=== PATIENT | male | born 1955 | race Caucasian/White ===

== ENCOUNTER 2019-02-03 14:02 | Observation (INO) | payer BC ==
--- NOTE | 2019-02-03 14:33 | ED Physician Documentation ---
PD HPI SYNCOPE - Stated complaint Stated Complaint: SYNCOPE - Chief complaint Chief Complaint: Neuro - History obtained from History obtained from: Patient, Family (his mom) - History of Present Illness Witnessed: Witnessed (There were in line at a fast food drive-through, he was driving. He passed out for about 30 seconds with head bobbing and then came to without any postictal., He was dizzy before this and dizzy this morning. Now feels fine. There has not been any chest pain, trouble breathing, pedal edema or calf pain.) Review of Systems Ten Systems: 10 systems reviewed and negative Constitutional: denies: Fever, Chills Cardiac: denies: Chest pain / pressure, Palpitations Respiratory: denies: Dyspnea, Cough GI: denies: Nausea, Vomiting, Diarrhea PD PAST MEDICAL HISTORY - Past Medical History Past Medical History: No - Allergies Allergies/Adverse Reactions: Allergies Allergy/AdvReac Type Severity Reaction Status Date / Time No Known Drug Allergies Allergy Verified 02/03/19 14:30 - Social History Smoking Status: Current every day smoker Does the pt drink ETOH?: Yes Does the pt have substance abuse?: Yes Substance Use and Type: Marijuana - Family History Family history: reports: Non contributory PD ED PE NORMAL - Vitals Vital signs reviewed: Yes - General General: Alert and oriented X 3, No acute distress - HEENT HEENT: PERRL, EOMI - Neck Neck: Supple, no meningeal sign, No bony TTP - Cardiac Cardiac: RRR, No murmur - Respiratory Respiratory: No respiratory distress, Clear bilaterally - Abdomen Abdomen: Soft, Non tender - Back Back: No CVA TTP, No spinal TTP - Derm Derm: Normal color, Warm and dry - Extremities Extremities: No edema, No calf tenderness / cord - Neuro Neuro: Alert and oriented X 3, Normal speech Results - Vitals Vitals: Vital Signs - 24 hr 02/03/19 02/03/19 14:10 15:21 Temperature 36.2 C L Heart Rate 59 L 54 L Respiratory 16 14 Rate Blood Pressure 142/76 H 114/58 L O2 Saturation 95 94 Oxygen O2 Source Room air - EKG (time done) 1415 Rate: Rate (enter#) (49) Rhythm: Sinus bradycardia [place]: LAD Intervals: Normal IN QRS: Normal Ischemia: Normal ST segments Computer interpretation: Agree with computer - Labs Labs: Laboratory Tests 02/03/19 02/03/19 02/03/19 14:48 14:48 14:48 WBC 7.9 RBC 4.98 Hgb 15.3 Hct 44.9 MCV 90.0 MCH 30.7 MCHC 34.1 RDW 13.6 Plt Count 193 MPV 8.7 Neut # (Auto) 5.7 Lymph # (Auto) 1.4 L [place] # (Auto) 0.6 Eos # (Auto) 0.1 Baso # (Auto) 0.1 Absolute Nucleated RBC 0.00 Nucleated RBC % 0.0 Sodium 133 L Potassium 4.0 Chloride 102 Carbon Dioxide 23 Anion Gap 8.0 BUN 15 Creatinine 0.7 Estimated GFR (MDRD) 114 Glucose 151 H Calcium 8.5 Magnesium 1.9 Total Bilirubin 0.6 AST 24 ALT 23 Alkaline Phosphatase 51 Troponin I < 0.04 Total Protein 7.1 Albumin 3.7 Globulin 3.4 Albumin/Globulin Ratio 1.1 Lipase 49 TSH 02/03/19 14:48 WBC RBC Hgb Hct MCV MCH MCHC RDW Plt Count MPV Neut # (Auto) Lymph # (Auto) [place] # (Auto) Eos # (Auto) Baso # (Auto) Absolute Nucleated RBC Nucleated RBC % Sodium Potassium Chloride Carbon Dioxide Anion Gap BUN Creatinine Estimated GFR (MDRD) Glucose Calcium Magnesium Total Bilirubin AST ALT Alkaline Phosphatase Troponin I Total Protein Albumin Globulin Albumin/Globulin Ratio Lipase TSH 1.52 PD MEDICAL DECISION MAKING - ED course ED course: 63-year-old gentleman presents with a syncopal episode, now back to normal. His emergency department work-up was notable for several episodes of bradycardia on the monitor, sinus bradycardia down to a heart rate of 40 but no lower. He was asymptomatic during this. This is concerning and potentially a harbinger that he had a more significant bradycardic episode causing his syncope and I spoke with Dr. Aponte for prolonged observation at 3:55 PM. Departure - Departure Disposition: ED Place in Observation Clinical Impression: Bradycardia Syncope Qualifiers: Syncope type: unspecified Qualified Code(s): R55 - Syncope and collapse Condition: Stable
[2019-02-03 14:52] LABS: BASOPHILS # (AUTO) 0.1 10^3/uL (0.0-0.1); EOSINOPHILS # (AUTO) 0.1 10^3/uL (0.0-0.7); EOSINOPHILS % (AUTO) 1.3 %; HGB - HEMOGLOBIN 15.3 g/dL (14.0-18.0); LYMPHOCYTES # (AUTO) 1.4 10^3/uL (1.5-3.5); LYMPHOCYTES % (AUTO) 17.6 %; MEAN CORPUSCULAR HEMOGLOBIN 30.7 pg (27.0-31.0); MEAN CORPUSCULAR HGB CONC 34.1 g/dL (32.0-36.0); MEAN PLATELET VOLUME 8.7 fL (7.4-11.4); MONOCYTES # (AUTO) 0.6 10^3/uL (0.0-1.0); MONOCYTES % (AUTO) 7.4 %; NEUTROPHILS # (AUTO) 5.7 10^3/uL (1.5-6.6); NEUTROPHILS % (AUTO) 72.7 %; PLT - PLATELET COUNT 193 10^3/uL (130-450); RED BLOOD COUNT 4.98 10^6/uL (4.70-6.10); RED CELL DISTRIBUTION WIDTH 13.6 % (12.0-15.0); WHITE BLOOD COUNT 7.9 x10^3/uL (4.8-10.8)
[2019-02-03 15:09] LABS: ALBUMIN 3.7 g/dL (3.2-5.5); ALBUMIN/GLOBULIN RATIO 1.1 (1.0-2.2); BILIRUBIN,TOTAL 0.6 mg/dL (0.2-1.0); CALCIUM 8.5 mg/dL (8.5-10.3); CREATININE 0.7 mg/dL (0.6-1.2); MAGNESIUM 1.9 mg/dL (1.7-2.8); TOTAL PROTEIN 7.1 g/dL (6.7-8.2)
[2019-02-03] MEDS ORDERED: ACETAMINOPHEN 325 MG TABLET PO PRN (16:30)
[2019-02-03] MEDS ORDERED: SODIUM CHLORIDE FLUSH 0.9% 10 ML SYRINGE IVP PRN (16:30)
[2019-02-03] MEDS ORDERED: NICOTINE 21 MG PATCH TOP SCH (19:00)
--- NOTE | 2019-02-03 20:57 | HISTORY & PHYSICAL EXAMINATION ---
DATE OF SERVICE: 02/03/2019 Physician: Ary Aponte MD HISTORY OF PRESENT ILLNESS: This is a 63-year-old white male who has a negative past medical history except rare fractures and remote peptic ulcer disease. He is on no medications and has no PCP. The patient describes that he usually eats only when he is so lightheaded that he realizes he has to eat; the reason for this is he thinks he is not interested in food or gets early satiety. These symptoms have been happening for several years. He describes about 6 months of sensations of body muscle cramps that last for days, and then eventually he has a soreness in that region. 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 Just this 1 week ago, he started walking as a routine activity. This morning, he awoke and was slightly more dizzy than usual, thought it was his sensation of being hungry, but waited further until he finally had a meal after picking up his mother. He did not feel any better after that meal, and then they went shopping. While he was walking in the store, he got lightheadedness to the point where he had to hold on to something and stop and wait, then felt better immediately. There was no tunnel vision or syncope at this point, no palpitations, chest pain or shortness of breath. He was then able to continue his errands and was driving in a [employer] drive-through and while stopped in the queue, he had witnessed syncope while sitting at the wheel of his car. His mother lightly shook him and said, "Are you okay?" and he was able to wake up immediately and felt better and was able to communicate. He did remember feeling dizzy just before this entire event, but cannot even remember that his head hit the steering wheel gently. After awakening, he ate his ice cream cone that was ordered and at that point felt immediately better. They were able to continue shopping, and then he decided he had to have evaluation for this and came to the emergency room. There has been no sensation of lightheadedness since that eating of the ice cream. He has never had syncope before. In the emergency room, he was found to have a normal blood pressure but heart rates in the 40s and is being admitted for evaluation of bradycardia and syncope. REVIEW OF SYSTEMS: A comprehensive review of systems was performed and the pertinent positives are listed above; the rest are negative. PAST MEDICAL HISTORY: Negative. ALLERGIES: NONE. MEDICATIONS: None. FAMILY HISTORY: No inherited diseases. SOCIAL HISTORY: One pack a day smoker for many years. Rare alcohol use, approximately once or twice a week. Daily cannabinoid use. PHYSICAL EXAMINATION GENERAL: White male who is in no distress, sitting upright in bed. VITAL SIGNS: Blood pressure 150/83, pulse 50-54 in sinus rhythm, afebrile, room air saturation 97%. HEENT: Unremarkable except poor dentition. NECK: Without JVD or carotid bruits. CHEST: Clear. HEART: Sounds normal. No murmur. No RV heave or gallop. ABDOMEN: Soft with positive bowel sounds, nontender. No organomegaly. EXTREMITIES: No clubbing, cyanosis or edema. NEUROLOGIC: Intact. LABORATORY DATA: CBC normal. No INR was done. Sodium 133, otherwise normal electrolytes. Normal BUN and creatinine. Glucose 151, magnesium 1.9. Normal liver tests. Troponin not detectable. TSH normal at 1.52. No chest x-ray was done. EKG shows sinus bradycardia, rate is 49. He has left anterior fascicular block and minimal ST depression in leads V4 through V6. IMPRESSION/DIAGNOSES 1. Syncope. 2. Lightheadedness, related to periods of fasting; consider hypoglycemia. 3. Abnormal EKG. 4. Hyponatremia. 5. Bradycardia. 6. Tobacco abuse. PLAN 1. Place the patient in Observation status, on telemetry. Cycle troponins x3. 2. Obtain an Echo to evaluate for structural heart disease. 3. Obtain carotid Dopplers. 4. Obtain orthostatic vital sign checks. 5. Obtain fingerstick glucose checks a.c. and h.s. and if he gets his lightheaded symptoms. Check an A1c. 6. Recheck his electrolytes in the morning. 7. The biggest concern is his bradycardia making a consideration for pacemaker implant a possibility. This was discussed with the patient. 8. Start a Nicotine patch; smoking cessation was advised. 9. consult to help get a PCP. CODE STATUS: FULL CODE. DEEP VENOUS THROMBOSIS PROPHYLAXIS: SCDs. ATTESTATION: The patient is expected to be discharged or transferred to another facility within 96 hours: Yes. TD: 02/03/2019 19:32 BENITEZ
[2019-02-03] MEDS: FAMOTIDINE 20 MG TABLET PO SCH (21:17)
[2019-02-03] MEDS: SODIUM CHLORIDE FLUSH 0.9% 10 ML SYRINGE IVP SCH (21:17)
--- NOTE | 2019-02-03 22:05 | Ultrasound Report ---
Reason: syncope Procedure Date: 02/03/2019 Accession Number: [id number] / [id number] Procedure: US - Carotid Doppler Complete CPT Code: FULL RESULT: EXAM: BILATERAL CAROTID AND VERTEBRAL ARTERY DUPLEX DOPPLER ULTRASOUND. EXAM DATE: 02/03/2019 06:21 PM. CLINICAL HISTORY: Syncope. Dizziness, syncopal episode. COMPARISON: None. TECHNIQUE: Grayscale imaging, color Doppler, and duplex spectral Doppler were used to evaluate the carotid and vertebral arteries bilaterally. Static images were obtained. FINDINGS: Small soft plaque bilaterally in the carotid bulbs less than 50%. Normal antegrade flow is present in bilateral vertebral arteries. VELOCITIES (cm/sec): Right CCA mid: PSV 105 cm/sec CCA dist: PSV 69 cm/sec ICA prox: PSV 67 cm/sec, EDV 17 cm/sec ICA mid: PSV 68 cm/sec, EDV 23 cm/sec ICA dist: PSV 79 cm/sec, EDV 28 cm/sec ECA: PSV 120.7 cm/sec Vert: PSV 50 cm/sec ICA/CCA: 1.1 Left CCA mid: PSV 108 cm/sec CCA dist: PSV 104 cm/sec ICA prox: PSV 48 cm/sec, EDV 15 cm/sec ICA mid: PSV 67 cm/sec, EDV 24 cm/sec ICA dist: PSV 61 cm/sec, EDV 28 cm/sec ECA: PSV 101 cm/sec Vert: PSV 31 cm/sec ICA/CCA: 0.6 ICA diameter stenosis: Right: <50% by velocity and <70% by NASCET criteria. Left: <50% by velocity and <70% by NASCET criteria. IMPRESSION: No evidence for 50% or greater stenosis. See above. General Recommendations: Stenosis =50% ICA - Follow-up ultrasound 6-12 months Stenosis <50% ICA - High Risk Patient with plaque - Follow-up ultrasound 1-2 years Normal Study but High Risk Patient - Follow-up ultrasound 3-5 years Management recommendations and diagnostic criteria are based on current IAC endorsed standards in Carotid Artery Stenosis: Grayscale and Doppler Ultrasound Diagnosis. Validated velocity measurements with angiographic measurements and velocity criteria are extrapolated from diameter data as defined by the Society of Radiologists in Ultrasound Consensus Conference Radiology 2003; 229;340-346. RADIA
[2019-02-04] MEDS: SODIUM CHLORIDE FLUSH 0.9% 10 ML SYRINGE IVP SCH ×2 (01:31→09:11)
[2019-02-04 05:51] LABS: CALCIUM 8.9 mg/dL (8.5-10.3); CREATININE 0.8 mg/dL (0.6-1.2)
[2019-02-04 06:29] LABS: HB2 TOTAL 16.8 g/dL; HEMOGLOBIN A1C 0.6 g/dL; HEMOGLOBIN A1C % 5.4 % (4.6-6.2)
[2019-02-04] MEDS ORDERED: SODIUM CHLORIDE 0.9% 1,000 ML IV SCH (09:00)
[2019-02-04] MEDS ORDERED: POLYETHYLENE GLYCOL 3350 17 GM PACKET PO SCH (09:00)
[2019-02-04] MEDS: FAMOTIDINE 20 MG TABLET PO SCH (09:11)
--- NOTE | 2019-02-04 11:51 | Discharge Plan ---
Discharge Plan Disposition: 02 Transfer Acute Care Hosp Condition: Serious No Smoking: If you smoke, Please STOP! Call for help.
[2019-02-04 13:31] VITALS: BP 140/81
--- NOTE | 2019-02-04 18:34 | DISCHARGE SUMMARY ---
Physician: Ary Aponte MD DATE OF ADMISSION: 02/03/2019 DATE OF DISCHARGE: 02/04/2019 HISTORY OF PRESENT ILLNESS: This is a 63-year-old white male with a history of remote stomach ulcer only. Otherwise, a negative past medical history, is on no medications, does not currently have a PCP. The patient presented after an episode of syncope. He reported that over the last 1 day, he has been more dizzy and lightheaded than usual. He does experience lightheadedness when he is hungry. He had this lightheaded feeling, despite having a normal breakfast at a restaurant. He then went shopping and during his walk, he developed lightheadedness bad enough that he had to stop and hold onto the wall, the feeling passed without syncope. He was able to drive and do errands and while he was in his car, standing in a queue at [facility], had just placed an order, he did remember feeling dizzy and then he was witnessed to have syncope. His mother was in the passenger seat and she noticed that he was nodding his head down as if he was falling asleep, head was touching the steering wheel. He did not respond to his name being called or being touched until possibly 20-30 seconds passed and then he did slowly wake up and did not know what happened. He did drive after that, stated he felt better after he ate the ice cream. He did come to the emergency room with this complaint for evaluation. In the ER, he was noted to have sinus bradycardia with rates in the 40s and he was placed in observation for evaluation of syncope. HOSPITAL COURSE AND DISCHARGE DIAGNOSES 1. Syncope. There were no further episodes of syncope. He had normal troponins x3. There were no signs of dehydration by labs, but he had mild orthostasis the next day and did get saline IV. His telemetry continued to show sinus bradycardia through the night with rates in the 40s and then the following morning, possibly during holding his breath, he had a documented run of sinus arrest with junctional bradycardia escape rhythm at a rate of 26. With this, he did get lightheaded. Because of the severe bradycardia, I reached out to Cardiology at [facility] and discussed the case. The patient was accepted in transfer for placement of a pacemaker and he was transferred, in guarded condition, by [facility] ambulance on 02/04/2019. 2. Lightheadedness. The patient reports about 6 months of feeling lightheaded related to periods of fasting and therefore, he was evaluated for hypoglycemia by having Accu-Chek blood tests. These were all normal. An A1c was also done, which was in a normal range of 5.4. He then thought back that maybe even these lightheaded episodes were related to times when he was "nearly blacking out, but not completely." The mother corroborated this. 3. Abnormal EKG. The patient's EKG showed sinus bradycardia with the abnormal merari arrhythmia as described above as well as left anterior fascicular block. 4. Hyponatremia. The patient's admission sodium was 133, on followup was 140 the next day. 5. Bradycardia, as described above. 6. Tobacco abuse. The patient described smoking 1 pack per day and was interested in quitting. He was on a nicotine 21 mg patch topically daily while here. LABORATORY AND IMAGING: An Echo was done that showed low normal LVEF of 50-55%, otherwise unremarkable. Carotid Doppler showed mild right sided plaque. Chest x-ray was within normal limits. A followup EKG was similar to the admission EKG showing marked sinus bradycardia and LAFB. ALLERGIES: NONE. MEDICATIONS AT DISCHARGE: IV saline hydration. CONDITION AT TRANSFER: Guarded. PHYSICAL EXAMINATION: VITAL SIGNS: Blood pressure was 140/80, heart rate 50, room air saturation 97%. HEENT: Unremarkable, except for male pattern baldness. NECK: Without JVD. CHEST: Clear. HEART: Sounds were normal. No murmur. ABDOMEN: Soft. EXTREMITIES: Without edema. NEUROLOGIC: Grossly intact. FOLLOWUP: This will be determined after his hospitalization at [facility] and placement of a permanent pacemaker. Time to discharge, chart review, patient education, and discussion with his mother at bedside, arrangements for transfer to the accepting facility and dictation: 60 minutes. TD: 02/04/2019 18:19 BENITEZ
== END 2019-02-04 14:30 | disposition short-term general hospital (02) ==
LOC: ED 14:02 → MS2 16:30
PROVIDERS: ADMIT Internal Medicine; ATTEND Internal Medicine
DX: R55 Syncope and collapse (principal); R00.1 Bradycardia, unspecified; R42 Dizziness and giddiness; I44.4 Left anterior fascicular block; E87.1 Hypo-osmolality and hyponatremia; F17.210 Nicotine dependence, cigarettes, uncomplicated; Z87.11 Personal history of peptic ulcer disease
CPT/HCPCS: 36415; 80048; 83036; 83690; 83735; 84484; 93005; 93306; 93880; 99283; 99284; A9270; G0378; 80053; 84443; 85025

== ENCOUNTER 2020-06-09 15:13 | Emergency (ER) | payer BC ==
[2020-06-09] MEDS ORDERED: predniSONE 20 MG TABLET PO STA (18:56)
[2020-06-09] MEDS ORDERED: DOXEPIN 10 MG CAPSULE PO STA (18:57)
--- NOTE | 2020-06-09 18:59 | ED Physician Documentation ---
History of Present Illness - Stated complaint Stated Complaint: BI LAT HAND PX/SWELLING - Chief complaint Chief Complaint: Ext Problem - History obtained from History obtained from: Patient - History of Present Illness Timing: How many weeks ago (1) Pain level max: 0 Pain level now: 0 - Additonal information Additional information: 65-year-old male presents to the emergency department with bilateral hand swelling and erythema. Skin cracking and peeling. Nothing makes it better or worse. Does not recall any injury. Does not work with chemicals. Has not taken anything for this. Review of Systems Constitutional: denies: Fever, Chills Skin: denies: Rash Musculoskeletal: denies: Neck pain, Back pain Neurologic: denies: Headache PD PAST MEDICAL HISTORY - Past Medical History Past Medical History: Yes GI: Ulcers - Present Medications Home Medications: Ambulatory Orders Medication Instructions Recorded Confirmed Terbinafine [Lamisil] 250 mg PO DAILY #14 tablet 06/09/20 predniSONE [Prednisone] 40 mg PO DAILY #10 tablet 06/09/20 - Allergies Allergies/Adverse Reactions: Allergies Allergy/AdvReac Type Severity Reaction Status Date / Time No Known Drug Allergies Allergy Verified 06/09/20 15:49 - Social History Smoking Status: Current every day smoker Does the pt drink ETOH?: Yes Does the pt have substance abuse?: Yes PD ED PE NORMAL - Vitals Vital signs reviewed: Yes - General General: Alert and oriented X 3, No acute distress - HEENT HEENT: Moist mucous membranes - Derm Derm: Warm and dry - Extremities Extremities: Other (B hands - Cracking skin, skin breakdown and maceration between the fingers, swelling and erythema.) - Neuro Neuro: Alert and oriented X 3 - Psych Psych: Normal mood, Normal affect Results - Vitals Vitals: Oxygen O2 Source Room air PD MEDICAL DECISION MAKING - ED course Complexity details: reviewed results, re-evaluated patient, considered differential, d/w patient ED course: Patient with what appears to be tinea manuum. Will place on antifungals and have him follow-up with his doctor for further care. He is having significant itching as well. Will place on a small amount of prednisone to help with the swelling and inflammation. No evidence of secondary infection. No indication for antibiotics. Patient counseled regarding signs and symptoms for which I believe and urgent re-evaluation would be necessary. Patient with good understanding of and agreement to plan and is comfortable going home at this time This document was made in part using voice recognition software. While efforts are made to proofread this document, sound alike and grammatical errors may occur. Departure - Departure Disposition: 01 Home, Self Care Clinical Impression: Tinea manuum Condition: Good Instructions: ED Infec Skin Fungal Tinea Follow-Up: your,doctor in 1 week [Other] Prescriptions: Terbinafine [Lamisil] 250 mg PO DAILY #14 tablet predniSONE [Prednisone] 40 mg PO DAILY #10 tablet Comments: Return if you worsen. Take the medication as prescribed until gone. Follow-up with your doctor for further evaluation and care. Discharge Date/Time: 06/09/20 19:15
[2020-06-09 19:16] VITALS: BP 135/78
== END 2020-06-09 19:15 | disposition home or self-care (01) ==
LOC: ED 15:13
DX: B35.2 Tinea manuum (principal); F17.200 Nicotine dependence, unspecified, uncomplicated
CPT/HCPCS: 99282; 99284; A9270; J7512